=== PATIENT | male | born 1940 | race African-American/Black ===

== ENCOUNTER → 2016-07-25 16:28 | Outpatient (CLI) | payer MEDICARE ==
[~2016-07-25 16:28] MED LIST: CALAN SR240 MG PO; CATAPRES0.2 MG PO; ELIQUIS2.5 MG PO; FLOMAX0.4 MG PO; FUROSEMIDE40 MG PO; HYDROCODON-ACE1 EAC7 PO; IPRAT-ALBUT 0.5-3 ML UPD; OXYCODONE HCL5 MG PO; PRAVACHOL40 MG PO; PROAIR HFA8.5 GM INH; SINGULAIR10 MG PO; ULTRAM50 MG PO
[2016-08-13 14:28] VITALS: BMI 21.9
== END | disposition home or self-care (01) ==
LOC: D.LABREF 16:28
DX: M16.12 Unilateral primary osteoarthritis, left hip (principal); Z11.8 Encounter for screening for other infectious and parasitic diseases

== ENCOUNTER 2016-08-08 08:00 | Inpatient (IN) | payer MEDICARE ==
[~2016-08-08] VITALS: Ht 180.3 cm; Wt 71.4 kg
[2016-08-08 07:56] LABS: BASOPHILS 0.6 % (0.0-2.0); HEMATOCRIT 35.5 % (42.0-54.0); HEMOGLOBIN 11.7 g/dL (13.5-17.5); IMMATURE GRANULOCYTES 0.4 % (0-5); LYMPHOCYTES 33.8 % (15-50); MCH 29.6 pg (26.0-34.0); MCV 89.9 fL (80.0-100.0); MEAN PLATELET VOLUME 8.8 fL (7.4-10.4); MONOCYTES 11.1 % (2-11); NEUTROPHILS 47.1 % (40-80); PLATELET COUNT 260 10x3/uL (130-400); RBC 3.95 10x6/uL (4.20-6.10); RDW 12.8 % (11.5-14.5); WBC 5.3 10x3/uL (4.8-10.8)
[~2016-08-08 08:00] MED LIST changes: -ELIQUIS2.5 MG PO; -OXYCODONE HCL5 MG PO
[2016-08-08 08:04] LABS: APTT 28.1 SECONDS (22.8-39.4); INR 1.02 (0.85-1.17); PROTIME 13.3 SECONDS (11.6-15.0)
[2016-08-08 08:05] LABS: ANION GAP 13.5 mmol/L (8-16); CALCIUM 9.5 mg/dL (8.5-10.1); CARBON DIOXIDE 27.7 mmol/L (21.0-32.0); CREATININE - SERUM 2.7 mg/dL (0.6-1.3); POTASSIUM - SERUM 5.2 mmol/L (3.5-5.1)
[2016-08-08 10:07] LABS: APPEARANCE CLEAR (CLEAR); BILIRUBIN NEGATIVE (NEGATIVE); COLOR YELLOW (YELLOW); GLUCOSE NEGATIVE (NEGATIVE); KETONE NEGATIVE (NEGATIVE); LEUKOCYTE ESTERASE NEGATIVE (NEGATIVE); NITRITE NEGATIVE (NEGATIVE); PROTEIN NEGATIVE (NEGATIVE); SPECIFIC GRAVITY 1.015 (1.005-1.020); UROBILINOGEN NORMAL (NORMAL)
[2016-08-13 08:43] VITALS: BP 122/65; BMI 22.2
[2016-08-13 14:28] VITALS: BP 122/68; Ht 180.3 cm; Wt 71.4 kg
[2016-08-13 20:00] VITALS: BP 90/63
[2016-08-14] VITALS (15 sets, daily range): BP systolic 70–113; BP diastolic 43–70
[2016-08-14 05:51] LABS: BASOPHILS 0.1 % (0.0-2.0); EOSINOPHILS 0 % (0-7); HEMATOCRIT 23.3 % (42.0-54.0); HEMOGLOBIN 7.6 g/dL (13.5-17.5); IMMATURE GRANULOCYTES 0.4 % (0-5); LYMPHOCYTES 10.2 % (15-50); MCH 29.6 pg (26.0-34.0); MCHC 32.6 g/dL (31.0-37.0); MCV 90.7 fL (80.0-100.0); MEAN PLATELET VOLUME 9.4 fL (7.4-10.4); MONOCYTES 15.8 % (2-11); NEUTROPHILS 73.5 % (40-80); PLATELET COUNT 230 10x3/uL (130-400); RBC 2.57 10x6/uL (4.20-6.10); RDW 12.8 % (11.5-14.5); WBC 8.2 10x3/uL (4.8-10.8)
[2016-08-14 06:05] LABS: BILIRUBIN - TOTAL 0.38 mg/dL (0.2-1.3); CALCIUM 7.7 mg/dL (8.5-10.1); CARBON DIOXIDE 19.1 mmol/L (21.0-32.0); CREATININE - SERUM 3.5 mg/dL (0.6-1.3); PROTEIN - SERUM 6.3 g/dL (6.4-8.2)
[2016-08-14 06:08] LABS: ANION GAP 16.9 mmol/L (8-16)
[2016-08-14 17:42] LABS: ANION GAP 15.8 mmol/L (8-16); CALCIUM 7.3 mg/dL (8.5-10.1); CARBON DIOXIDE 20.6 mmol/L (21.0-32.0); CREATININE - SERUM 3.9 mg/dL (0.6-1.3)
[2016-08-14 17:45] LABS: POTASSIUM - SERUM 7.4 mmol/L (3.5-5.1)
[2016-08-15 04:00] VITALS: BP 132/83
[2016-08-15 06:53] LABS: BASOPHILS 0.2 % (0.0-2.0); EOSINOPHILS 1.3 % (0-7); HEMATOCRIT 26.8 % (42.0-54.0); HEMOGLOBIN 8.9 g/dL (13.5-17.5); IMMATURE GRANULOCYTES 0.3 % (0-5); LYMPHOCYTES 9.2 % (15-50); MCH 29.9 pg (26.0-34.0); MCHC 33.2 g/dL (31.0-37.0); MCV 89.9 fL (80.0-100.0); MEAN PLATELET VOLUME 9.2 fL (7.4-10.4); MONOCYTES 8.7 % (2-11); NEUTROPHILS 80.3 % (40-80); RBC 2.98 10x6/uL (4.20-6.10); RDW 13.5 % (11.5-14.5)
[2016-08-15 06:54] LABS: PLATELET COUNT 183 10x3/uL (130-400); WBC 11.1 10x3/uL (4.8-10.8)
[2016-08-15 07:16] LABS: ALBUMIN 3.2 g/dL (3.4-5.0); ANION GAP 14.2 mmol/L (8-16); BILIRUBIN - TOTAL 0.3 mg/dL (0.2-1.3); CALCIUM 8.1 mg/dL (8.5-10.1); CARBON DIOXIDE 20.2 mmol/L (21.0-32.0); CREATININE - SERUM 3.4 mg/dL (0.6-1.3); POTASSIUM - SERUM 4.4 mmol/L (3.5-5.1); PROTEIN - SERUM 6.7 g/dL (6.4-8.2)
[2016-08-15 08:32] VITALS: BP 144/72
[2016-08-15 11:42] VITALS: BP 129/75
[2016-08-15 15:15] VITALS: BP 122/76
[2016-08-15 22:56] VITALS: BP 140/77
[2016-08-15 23:00] VITALS: BP 120/63
[2016-08-16 06:31] LABS: BASOPHILS 0.1 % (0.0-2.0); EOSINOPHILS 3.2 % (0-7); HEMATOCRIT 24.3 % (42.0-54.0); HEMOGLOBIN 8.1 g/dL (13.5-17.5); IMMATURE GRANULOCYTES 0.4 % (0-5); LYMPHOCYTES 8.7 % (15-50); MCH 29.3 pg (26.0-34.0); MCHC 33.3 g/dL (31.0-37.0); MEAN PLATELET VOLUME 9.5 fL (7.4-10.4); MONOCYTES 11.9 % (2-11); NEUTROPHILS 75.7 % (40-80); PLATELET COUNT 198 10x3/uL (130-400); RBC 2.76 10x6/uL (4.20-6.10); RDW 13.4 % (11.5-14.5); WBC 8.4 10x3/uL (4.8-10.8)
[2016-08-16 06:52] LABS: ALBUMIN 2.9 g/dL (3.4-5.0); ANION GAP 13.3 mmol/L (8-16); BILIRUBIN - TOTAL 0.3 mg/dL (0.2-1.3); CALCIUM 8.2 mg/dL (8.5-10.1); CARBON DIOXIDE 22.4 mmol/L (21.0-32.0); PROTEIN - SERUM 6.4 g/dL (6.4-8.2)
[2016-08-16 06:53] LABS: CREATININE - SERUM 2.4 mg/dL (0.6-1.3); POTASSIUM - SERUM 3.7 mmol/L (3.5-5.1)
[2016-08-16 07:50] VITALS: BP 135/68
[2016-08-16] MEDS ORDERED: ELIQUIS2.5 MG PO (08:59)
[2016-08-16] MEDS ORDERED: OXYCODONE HCL5 MG PO (08:59)
--- NOTE | 2016-08-23 12:12 | OP ---
PATIENT NAME: BRADLY MCFARLANE MEDICAL RECORD: [id number] :44 LOCATION:[id number] ADMISSION DATE:08/13/16 SURGEON: FRANSISCA BADILLO MD DATE OF OPERATION: 08/13/2016 PREOPERATIVE DIAGNOSIS: Left hip degenerative joint disease. POSTOPERATIVE DIAGNOSIS: Left hip degenerative joint disease. PROCEDURE PERFORMED: Left total hip arthroplasty. SURGEON: Sincere Badillo MD. ANESTHESIA: General with block for postop pain. CONDITION: He tolerated the procedure well, was transferred to recovery room in stable condition at termination of the procedure. INDICATIONS: This is a very pleasant 76-year-old gentleman with severe arthritis of his left hip. 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 We discussed the options. He wanted to go ahead with a total hip arthroplasty. We discussed risks, benefits, and alternatives. He understood and wished to proceed. OPERATIVE REPORT: The patient was taken to the operating room and placed in supine position. He did have the block was placed in the preop holding area. In the operating room, his left hip was confirmed to be the correct hip. He was then placed in a lateral position with his left hip up. He did receive Ancef per protocol preoperatively. He also received vancomycin as he had a positive swab. His left hip was prepped and draped in the normal fashion. He had a secondary ChloraPrep and Ioban dressing placement. Procedure was begun by making a lateral incision, taking this down to the IT band. The IT band was split and Charnley retractor was placed. The anterior portion of the gluteus medius and capsule were taken off as a unit. The hip was dislocated. The femoral head was significantly deformed. I then proceeded to cut the head off using the guide then placed anterior and posterior acetabular retractors. The soft tissue was removed from about the acetabulum. I then proceeded to ream up to a 55 and then placed a 56 multi-holed cup, placing 3 screws in this. I then placed the liner with the metal liner so that I could continue to used the E-Poly. Once this was accomplished, I then moved to the leg off the side of the bed into the back, used a cookie cutter to open the femur, followed by a canal finder. I then broached him up to a 14 and trialed. The trial and x-rays showed its length was very good, still had room to broach on his femur. I therefore broached up to an 18, which was very tight, still had same fill so I placed high 18 stem with a standard head and neck, reduced this and felt very stable and length had been appropriate on films therefore, I left this in position, I copiously irrigated. I then placed 2 JuggerKnot suture anchors after which I brought the gluteus medius and the capsule back to the greater trochanter as a unit. The IT band was then double-stranded #1 double-stranded PDS. I then closed with 2-0 Vicryl then maria teresa. He was placed in soft dressing, awakened and transferred to the recovery room in stable condition, having tolerated the procedure well. TRANSINT:[id number] Voice Confirmation ID: [id number] DOCUMENT ID: [id number] OPERATIVE REPORT [id number] BRADLY MCFARLANE, FRANSISCA REZA MD at 1212 CC: [id number] DICTATION DATE: 08/13/16 1306 RNFA: 08/13/16 1432 DIS IN 08/16/16 [facility] [address] [place] [address]
--- NOTE | 2016-09-06 09:54 | DS ---
PATIENT:BRADLY MCFARLANE :44 MEDICAL RECORD: [id number] DISCHARGE SUMMARY ADMISSION DATE: 08/13/16 DISCHARGE DATE: 08/16/16 Admitted to the hospital on 08/13/2016, discharged on 08/16/2016. ADMITTING DIAGNOSIS: Left hip degenerative joint disease. DISCHARGE DIAGNOSIS: Left hip degenerative joint disease. PROCEDURE PERFORMED: Left total hip arthroplasty. HISTORY OF PRESENT ILLNESS: A pleasant 76-year-old gentleman with advanced degenerative changes of his hip. He came into the hospital and underwent a left total hip arthroplasty. He overall did quite well with his surgery. Progressed to the juncture where he was able to be discharged to continue on post-total hip protocols at home self care. He did have anticoagulation therapy and pain meds. DISCHARGE DIAGNOSES: 1. Hip degenerative joint disease. 2. Postop acute blood loss anemia. PLAN: See him in the office in about 2 weeks. TRANSINT:[id number] Voice Confirmation ID: [id number] DOCUMENT ID: [id number] FRANSISCA MONTOYA MD at 0954 CC: [id number] DICTATION DATE: 09/03/16 1035 RESIDENTIAL PROGRAM DIRECTOR: 09/03/16 2201 DIS IN 08/16/16 [id number] [place] [address]
== END 2016-08-16 12:31 | disposition home or self-care (01) | DRG 470 ==
LOC: D.SDCHOLD 08:00 → D.MS 08-13 05:15 → D.SDCHOLD 08-13 05:15 → D.MS 08-13 11:18
PROVIDERS: Family Medicine; Internal Medicine Nephrology; ADMIT Orthopaedic Surgery Sports Medicine
PROC: 0SRB02Z Replacement of Left Hip Joint with Metal on Polyethylene Synthetic Substitute, Open Approach (ICD-10-PCS; principal; 2016-08-13 09:15)
DX: M16.12 Unilateral primary osteoarthritis, left hip (principal); D62 Acute posthemorrhagic anemia; E11.22 Type 2 diabetes mellitus with diabetic chronic kidney disease; E11.65 Type 2 diabetes mellitus with hyperglycemia; I12.9 Hypertensive chronic kidney disease with stage 1 through stage 4 chronic kidney disease, or unspecified chronic kidney disease; N18.9 Chronic kidney disease, unspecified; J44.9 Chronic obstructive pulmonary disease, unspecified; J45.909 Unspecified asthma, uncomplicated

== ENCOUNTER 2017-08-05 14:08 | Inpatient (IN) | payer MEDICARE ==
[~2017-08-05] VITALS: Ht 180.3 cm; Wt 76.4 kg
[~2017-08-05 14:08] MED LIST changes: +ELIQUIS2.5 MG PO; +OXYCODONE HCL5 MG PO
[2017-08-05 14:57] LABS: BASOPHILS 0.1 % (0-2); EOSINOPHILS 0.2 % (0-7); HEMATOCRIT 36.4 % (42.0-54.0); HEMOGLOBIN 12.3 g/dL (13.5-17.5); IMMATURE GRANULOCYTES 1.4 % (0-5); LYMPHOCYTES 10.5 % (15-50); MCH 29.8 pg (26.0-34.0); MCHC 33.8 g/dL (31.0-37.0); MCV 88.1 fL (80.0-100.0); MEAN PLATELET VOLUME 9.9 fL (7.4-10.4); NEUTROPHILS 80.8 % (40-80); RBC 4.13 10x6/uL (4.20-6.10); RDW 12.2 % (11.5-14.5); WBC 8.8 10x3/uL (4.8-10.8)
[2017-08-05 15:08] LABS: ALBUMIN 3.7 g/dL (3.4-5.0); ANION GAP 13.2 mmol/L (8-16); BILIRUBIN - TOTAL 0.38 mg/dL (0.2-1.3); CALCIUM 8.9 mg/dL (8.5-10.1); CARBON DIOXIDE 27.3 mmol/L (21.0-32.0); CREATININE - SERUM 2.9 mg/dL (0.6-1.3); POTASSIUM - SERUM 3.5 mmol/L (3.5-5.1); PROTEIN - SERUM 7.4 g/dL (6.4-8.2)
[2017-08-05 15:10] LABS: APTT 20.7 SECONDS (22.8-39.4); INR 0.98 (0.85-1.17); PROTIME 12.6 SECONDS (11.6-15.0)
[2017-08-05 15:14] LABS: PLATELET COUNT 271 10x3/uL (130-400)
[2017-08-05 16:55] LABS: APPEARANCE CLEAR (CLEAR); BILIRUBIN NEGATIVE (NEGATIVE); COLOR YELLOW (YELLOW); GLUCOSE NEGATIVE (NEGATIVE); KETONE NEGATIVE (NEGATIVE); NITRITE NEGATIVE (NEGATIVE); PROTEIN NEGATIVE (NEGATIVE); UROBILINOGEN NORMAL (NORMAL)
[2017-08-06 00:19] VITALS: BP 132/78; Ht 180.3 cm; Wt 76.4 kg
[2017-08-06] MEDS ORDERED: ACETAMINOPHEN325 MG PO (00:28)
[2017-08-06] MEDS ORDERED: ULTRAM50 MG PO (00:28)
[2017-08-06] MEDS ORDERED: HYZAAR 100-25 T1 TAB PO (00:29)
[2017-08-06] MEDS ORDERED: FERROUS SULFAT325 MG PO (00:30)
[2017-08-06] MEDS ORDERED: BENADRYL50 MG PO (00:30)
[2017-08-06 04:00] VITALS: BP 133/70
[2017-08-06 04:53] LABS: BASOPHILS 0.1 % (0-2); EOSINOPHILS 1.8 % (0-7); HEMATOCRIT 32.5 % (42.0-54.0); IMMATURE GRANULOCYTES 1.2 % (0-5); LYMPHOCYTES 19.5 % (15-50); MCH 29.2 pg (26.0-34.0); MCHC 33.8 g/dL (31.0-37.0); MCV 86.2 fL (80.0-100.0); MEAN PLATELET VOLUME 10.1 fL (7.4-10.4); MONOCYTES 10.3 % (2-11); NEUTROPHILS 67.1 % (40-80); PLATELET COUNT 243 10x3/uL (130-400); RBC 3.77 10x6/uL (4.20-6.10); RDW 12.2 % (11.5-14.5); WBC 8.3 10x3/uL (4.8-10.8)
[2017-08-06 05:05] LABS: ANION GAP 12.5 mmol/L (8-16); CALCIUM 7.8 mg/dL (8.5-10.1); CARBON DIOXIDE 25.2 mmol/L (21.0-32.0); CREATININE - SERUM 2.2 mg/dL (0.6-1.3)
[2017-08-06 05:38] LABS: POTASSIUM - SERUM 2.7 mmol/L (3.5-5.1)
[2017-08-06 08:08] VITALS: BP 171/92
[2017-08-06 12:53] VITALS: BP 186/97
[2017-08-06 15:54] VITALS: BP 190/108
[2017-08-06 20:00] VITALS: BP 164/88
[2017-08-07] VITALS: BP 122/63
[2017-08-07 04:00] VITALS: BP 183/82
[2017-08-07 04:46] LABS: BASOPHILS 0.3 % (0-2); EOSINOPHILS 6.3 % (0-7); HEMATOCRIT 33.7 % (42.0-54.0); HEMOGLOBIN 11.6 g/dL (13.5-17.5); IMMATURE GRANULOCYTES 1.3 % (0-5); MCH 30.2 pg (26.0-34.0); MCHC 34.4 g/dL (31.0-37.0); MCV 87.8 fL (80.0-100.0); MEAN PLATELET VOLUME 9.8 fL (7.4-10.4); MONOCYTES 11.9 % (2-11); NEUTROPHILS 55.2 % (40-80); PLATELET COUNT 252 10x3/uL (130-400); RBC 3.84 10x6/uL (4.20-6.10); RDW 12.4 % (11.5-14.5); WBC 7.7 10x3/uL (4.8-10.8)
[2017-08-07 05:02] LABS: ALBUMIN 3.2 g/dL (3.4-5.0); ANION GAP 12.7 mmol/L (8-16); BILIRUBIN - TOTAL 0.5 mg/dL (0.2-1.3); CALCIUM 8.5 mg/dL (8.5-10.1); CARBON DIOXIDE 26.7 mmol/L (21.0-32.0); PROTEIN - SERUM 6.6 g/dL (6.4-8.2)
[2017-08-07 05:05] LABS: CREATININE - SERUM 1.6 mg/dL (0.6-1.3); POTASSIUM - SERUM 3.4 mmol/L (3.5-5.1)
[2017-08-07 07:55] VITALS: BP 193/83
== END 2017-08-07 12:40 | disposition home or self-care (01) | DRG 315 ==
LOC: D.ER 14:08 → D.MS 15:51 → D.EDHOLD 15:51 → D.MS 23:01
PROVIDERS: Emergency Medicine; Family Medicine
DX: I95.9 Hypotension, unspecified (principal); N18.4 Chronic kidney disease, stage 4 (severe); R53.1 Weakness; E87.6 Hypokalemia; I12.9 Hypertensive chronic kidney disease with stage 1 through stage 4 chronic kidney disease, or unspecified chronic kidney disease; E86.0 Dehydration